=== PATIENT | female | born 1975 | race Two or more races ===

== ENCOUNTER 2022-05-21 06:23 | Day surgery (SDC) | payer OTHER ==
[~2022-05-21] VITALS: Ht 157.5 cm; Wt 59.0 kg
[~2022-05-21 06:23] MED LIST: TAMOX PO; [UNRECOGNIZED DRUG - OTHER] PO
== END 2022-05-21 12:25 | disposition home or self-care (01) ==
LOC: CIR.AMB 06:23
PROVIDERS: ATTEND Obstetrics & Gynecology
DX: D27.0 Benign neoplasm of right ovary (principal); N83.8 Other noninflammatory disorders of ovary, fallopian tube and broad ligament; Z17.0 Estrogen receptor positive status [ER+]; Z20.822 Contact with and (suspected) exposure to COVID-19